=== PATIENT | male | born 1995 | race Caucasian/White ===

== ENCOUNTER → 2018-09-03 | Outpatient (CLI) | payer BC ==
--- NOTE | 2018-09-04 08:29 | XR ---
EXAMINATION TYPE: XR finger RT DATE OF EXAM: 09/03/2018 COMPARISON: NONE HISTORY: Right index finger pain and swelling for one week with no known injury TECHNIQUE: 2 views of the right index finger were obtained FINDINGS: No acute fracture, dislocation, or suspicious osseous lesion is seen of the right index fin dolly. No radiopaque foreign body. Radiographically the soft tissues are unremarkable. IMPRESSION: Unremarkable radiograph of the right index finger. No acute fracture or dislocation.
== END | disposition home or self-care (01) ==
LOC: RADXRYALE 16:19
PROVIDERS: ATTEND Physician Assistant Medical
DX: M79.644 Pain in right finger(s) (principal)

== ENCOUNTER → 2021-04-15 | Outpatient (CLI) | payer BC ==
--- NOTE | 2021-04-15 12:56 | US ---
EXAMINATION TYPE: US scrotum with doppler. Grayscale and color Doppler Duplex imaging performed of xenia vargas scrotum. DATE OF EXAM: 04/15/2021 COMPARISON: NONE CLINICAL HISTORY: N45.1 D29.22 N50.82. Left testes swelling. No injury. EXAM MEASUREMENTS: TESTICLES: Right Testicle: 4.3 x 4.0 x 3.7 cm Left Testicle: 4.1 x 5.0 x 2.7 cm EPIDIDYMIS HEAD: Right Epididymis: 1.0 x 0.7 x 0.8 cm Left Epididymis: 0.9 x 1.1 x 0.9 cm Doppler performed to assess for testicular vascularity; good bilateral color flow and waveforms are s een. Comparison view shows satisfactory and symmetric blood flow bilaterally. Presence of hydroceles: Small left greater than right Presence of varicoceles: Left IMPRESSION: Small in size left greater than right scrotal fluid collection or hydroceles.
== END | disposition home or self-care (01) ==
LOC: RADUSWWP 12:15
PROVIDERS: ATTEND Family Medicine
DX: I86.1 Scrotal varices (principal)
CPT/HCPCS: 76870; 93975